=== PATIENT | female | born 1985 | race Two or more races ===

== ENCOUNTER 2017-04-11 13:19 | Inpatient (IN) | payer MEDICAID ==
[~2017-04-11] VITALS: Ht 152.4 cm; Wt 75.0 kg
[2017-04-11] MEDS ORDERED: HYDROmorphone HCL 2 MG/ML VL IV ONE (18:15)
[2017-04-11] MEDS ORDERED: ONDANSETRON HCL 4 MG/2 ML VIAL IV ONE (18:15)
[2017-04-11 18:52] LABS: Basophils # (auto) 0.1 uL; Basophils % (auto) 0.6 % (0.0-2.0); Eosinophils # (auto) 0 uL; Eosinophils % (auto) 0.4 % (0.0-7.0); Hematocrit 43.7 % (36.0-46.0); Hemoglobin 14.2 g/dL (12.2-16.2); Lymphocytes # (auto) 1.2 uL; Lymphocytes % (auto) 11.3 % (10.0-50.0); Mean Corpuscular Hemoglobin 28.1 pg (28.0-32.0); Mean Corpuscular Hgb Conc. 32.6 g/dL (32.0-36.0); Mean Corpuscular Volume 86.3 fL (80.0-100.0); Monocytes # (auto) 0.7 uL; Monocytes % (auto) 6.5 % (0.0-12.0); Neutrophils # (auto) 8.8 uL; Neutrophils % (auto) 81.2 % (37.0-80.0); Nucleated Red Blood Cells % 0.1 %; Platelet Count (auto) 293 10^3/uL (140-450); Red Blood Cells 5.06 10^6/uL (4.0-5.20); Red Cell Distribution Width 13.3 % (11.8-14.3); White Blood Cell 10.8 10^3/uL (4.4-10.8)
[2017-04-11 19:06] LABS: INR 0.97 (0.9-1.15); Partial Thromboplastin Time 30.3 sec (22.64-33.71); Prothrombin Time 10.6 sec (9.37-12.3)
[2017-04-11 19:11] LABS: Albumin 3.8 g/dL (3.4-5.0); Calcium 8.6 mg/dL (8.5-10.1); Potassium 3.6 mmol/L (3.5-5.1)
[2017-04-11 19:14] LABS: Bilirubin, Total 0.6 mg/dL (0.2-1.0); Total Protein 8.2 g/dL (6.4-8.2)
[2017-04-11] MEDS ORDERED: MORPHINE SULF INJ 2 MG/ML SYRINGE 1ML IV PRN (22:30)
[2017-04-11] MEDS ORDERED: TEMAZEPAM 15 MG CAP PO PRN (22:30)
[2017-04-11] MEDS ORDERED: ONDANSETRON HCL 4 MG/2 ML VIAL IV PRN (22:30)
[2017-04-11] MEDS ORDERED: ACETAMINOPHEN 500 MG TAB PO PRN (22:30)
[2017-04-11 23:15] LABS: Basophils # (auto) 0 uL; Basophils % (auto) 0.3 % (0.0-2.0); Eosinophils # (auto) 0 uL; Eosinophils % (auto) 0.2 % (0.0-7.0); Hematocrit 43.6 % (36.0-46.0); Hemoglobin 13.9 g/dL (12.2-16.2); Lymphocytes # (auto) 0.9 uL; Lymphocytes % (auto) 7.2 % (10.0-50.0); Mean Corpuscular Hemoglobin 27.7 pg (28.0-32.0); Mean Corpuscular Hgb Conc. 31.8 g/dL (32.0-36.0); Monocytes # (auto) 0.6 uL; Monocytes % (auto) 4.9 % (0.0-12.0); Neutrophils # (auto) 10.4 uL; Neutrophils % (auto) 87.4 % (37.0-80.0); Platelet Count (auto) 266 10^3/uL (140-450); Red Blood Cells 5.01 10^6/uL (4.0-5.20); Red Cell Distribution Width 13.5 % (11.8-14.3); White Blood Cell 11.9 10^3/uL (4.4-10.8)
[2017-04-11 23:32] LABS: BUN/Creatinine Ratio 33.3; Calcium 8.7 mg/dL (8.5-10.1); Potassium 3.8 mmol/L (3.5-5.1)
[2017-04-12 00:10] VITALS: BP 117/74
[2017-04-12 05:00] VITALS: BP 117/78
[2017-04-12] MEDS ORDERED: MORPHINE SULFATE 4 MG/ML SYR/VIAL ONE (05:18)
[2017-04-12 05:31] LABS: Basophils # (auto) 0 uL; Basophils % (auto) 0.2 % (0.0-2.0); Eosinophils # (auto) 0 uL; Eosinophils % (auto) 0.1 % (0.0-7.0); Hematocrit 38.4 % (36.0-46.0); Hemoglobin 12.7 g/dL (12.2-16.2); Lymphocytes # (auto) 0.8 uL; Mean Corpuscular Hemoglobin 28.3 pg (28.0-32.0); Mean Corpuscular Hgb Conc. 32.9 g/dL (32.0-36.0); Mean Corpuscular Volume 85.9 fL (80.0-100.0); Monocytes # (auto) 0.7 uL; Monocytes % (auto) 7.2 % (0.0-12.0); Neutrophils # (auto) 8.5 uL; Neutrophils % (auto) 84.5 % (37.0-80.0); Platelet Count (auto) 256 10^3/uL (140-450); Red Blood Cells 4.48 10^6/uL (4.0-5.20); Red Cell Distribution Width 13.4 % (11.8-14.3)
[2017-04-12 06:05] LABS: BUN/Creatinine Ratio 34.2; Calcium 8.3 mg/dL (8.5-10.1); Potassium 4.7 mmol/L (3.5-5.1)
[2017-04-12 08:00] VITALS: BP 135/54
[2017-04-12 09:27] LABS: Urine Bacteria NONE SEEN /hpf (None Seen); Urine Blood Negative /uL (Negative); Urine Mucus FEW (None Seen); Urine Specific Gravity 1.021 (1.001-1.035); Urine WBC 29 /hpf (0 - 5)
[2017-04-12 11:56] VITALS: BP 127/82
[2017-04-12] MEDS: MORPHINE SULFATE 4 MG/ML SYR/VIAL IV PRN ×2 (14:05→21:24)
[2017-04-12 16:57] VITALS: BP 129/65
[2017-04-12 22:00] VITALS: BP 133/88
[2017-04-13] MEDS: HYDROcodone-ACET 5/325MG TAB PO PRN ×3 (00:15→20:35)
[2017-04-13 05:00] VITALS: BP 118/87
[2017-04-13 09:00] VITALS: BP 113/82
[2017-04-13 13:00] VITALS: BP 117/51
[2017-04-13 17:00] VITALS: BP 112/74
[2017-04-13 22:00] VITALS: BP 125/70
[2017-04-14 05:23] VITALS: BP 130/87
[2017-04-14 09:00] VITALS: BP 130/78
[2017-04-14] MEDS: HYDROmorphone HCL 2 MG/ML VL IV PRN ×2 (10:44→20:53)
[2017-04-14] MEDS: HYDROcodone-ACET 5/325MG TAB PO PRN (12:01)
[2017-04-14 12:55] VITALS: BP 120/83
[2017-04-14 17:00] VITALS: BP 121/89
[2017-04-14] MEDS ORDERED: ACETAMINOPHEN 500 MG TAB PO PRN (18:30)
[2017-04-15] MEDS: HYDROmorphone HCL 2 MG/ML VL IV PRN (04:27)
[2017-04-15 05:29] VITALS: BP 118/83
[2017-04-15 08:00] VITALS: BP 120/76
[2017-04-15 09:00] VITALS: BP 120/76
[2017-04-15] MEDS: HYDROcodone-ACET 5/325MG TAB PO PRN ×3 (10:07→20:38)
[2017-04-15 13:00] VITALS: BP 129/88
[2017-04-15 16:50] VITALS: BP 118/70
[2017-04-15 22:00] VITALS: BP 127/93
[2017-04-16] MEDS: HYDROcodone-ACET 5/325MG TAB PO PRN ×2 (03:43→14:55)
[2017-04-16 05:00] VITALS: BP 128/76
[2017-04-16 08:16] VITALS: BP 120/69
[2017-04-16 11:56] VITALS: BP 116/67
[2017-04-16 16:38] VITALS: BP 120/83
[2017-04-16 19:35] VITALS: BP 120/83
[2017-04-16 21:20] VITALS: BP 132/79
== END 2017-04-16 21:20 | disposition home or self-care (01) | DRG 340 ==
LOC: ER 13:19 → EDBD 13:19 → OVERFLOW 13:20 → WEST WING 23:58
PROVIDERS: ADMIT Nurse Practitioner Family; ATTEND Internal Medicine
DX: S72.401A Unspecified fracture of lower end of right femur, initial encounter for closed fracture (principal); G71.0 Muscular dystrophy; G12.9 Spinal muscular atrophy, unspecified; R53.2 Functional quadriplegia; E66.9 Obesity, unspecified; W05.0XXA Fall from non-moving wheelchair, initial encounter; Z99.3 Dependence on wheelchair; Z68.32 Body mass index [BMI] 32.0-32.9, adult; Y93.89 Activity, other specified; Y92.89 Other specified places as the place of occurrence of the external cause; Y99.8 Other external cause status
CPT/HCPCS: 36415; 73560; 73700; 80048; 80053; 81001; 85025; 85610; 85730; 87081; 94761; 96374; 96375; 97163; J2405

== ENCOUNTER 2018-09-05 09:29 | Emergency (ER) | payer MEDICAID ==
[~2018-09-05] VITALS: Ht 152.4 cm; Wt 72.6 kg
[2018-09-05] MEDS ORDERED: SODIUM CHLORIDE 0.9% 500 ML IVB ONE (10:31)
[2018-09-05 10:32] LABS: Basophils # (auto) 0 uL; Basophils % (auto) 0.3 % (0.0-2.0); Eosinophils # (auto) 0 uL; Eosinophils % (auto) 0.1 % (0.0-7.0); Hematocrit 45.2 % (36.0-46.0); Hemoglobin 15.1 g/dL (12.2-16.2); Lymphocytes # (auto) 0.9 uL; Lymphocytes % (auto) 11.1 % (10.0-50.0); Mean Corpuscular Hemoglobin 28.2 pg (28.0-32.0); Mean Corpuscular Hgb Conc. 33.4 g/dL (32.0-36.0); Mean Corpuscular Volume 84.5 fL (80.0-100.0); Monocytes # (auto) 0.4 uL; Monocytes % (auto) 5.5 % (0.0-12.0); Neutrophils # (auto) 6.4 uL; Nucleated Red Blood Cells % 0.1 %; Platelet Count (auto) 305 10^3/uL (140-450); Red Blood Cells 5.34 10^6/uL (4.0-5.20); Red Cell Distribution Width 13.8 % (11.8-14.3); White Blood Cell 7.8 10^3/uL (4.4-10.8)
[2018-09-05] MEDS ORDERED: KETOROLAC TROMETH 30 MG/ML 1ML VIAL IV ONE (10:45)
[2018-09-05 11:01] LABS: Albumin 4.2 g/dL (3.4-5.0); BUN/Creatinine Ratio 34.6; Calcium 9.1 mg/dL (8.5-10.1)
[2018-09-05 11:03] LABS: Bilirubin, Total 0.5 mg/dL (0.2-1.0); Total Protein 8.3 g/dL (6.4-8.2)
[2018-09-05] MEDS ORDERED: ONDANSETRON HCL 4 MG/2 ML VIAL IV ONE (14:45)
[2018-09-05 19:35] VITALS: BP 169/102
== END 2018-09-05 12:14 | disposition home or self-care (01) ==
LOC: EDUNIT# 09:29 → EDBD 09:29 → ER 09:29
DX: R10.31 Right lower quadrant pain (principal); R10.11 Right upper quadrant pain; R11.10 Vomiting, unspecified
CPT/HCPCS: 36415; 74176; 80053; 81002; 83690; 85025; 94761; 96361; 96374; 96375; 99284; J1885; J2405; J7040